=== PATIENT | female | born 2000 | race Asian ===

== ENCOUNTER 2019-06-16 06:07 | Day surgery (SDC) | payer BC ==
[~2019-06-16] VITALS: Ht 160 cm; Wt 64.9 kg
[2019-06-16] MEDS ORDERED: DEXAMETHASONE SOD PHOSPHATE 4 MG/ML VIAL IVP ONE (07:45)
[2019-06-16] MEDS ORDERED: WATER FOR IRRIGATION,STERILE 1,000 ML IRRIG.SOLN IR ONE (07:45)
[2019-06-16] MEDS ORDERED: BACITRACIN ZINC 15 GM TOPICAL OINTMENT TP ONE (07:45)
[2019-06-16] MEDS ORDERED: LR 1,000 ML IV.SOLN IV ONE (07:45)
[2019-06-16] MEDS ORDERED: ROCURONIUM BROMIDE 10 MG/ML (ZEMURON) IV ONE (07:45)
[2019-06-16] MEDS ORDERED: SEVOFLURANE 15 MIN GAS INH ONE (07:45)
[2019-06-16] MEDS ORDERED: MIDAZOLAM HCL 5 MG/5 ML VIAL IVP ONE (07:45)
[2019-06-16] MEDS ORDERED: fentaNYL CITRATE 250 MCG/5 ML AMP IV ONE (07:45)
[2019-06-16] MEDS ORDERED: KETOROLAC TROMETHAMINE 30 MG VIAL IVP ONE (07:45)
[2019-06-16] MEDS ORDERED: BUPIVACAINE /EPINEPHRINE/PF 0.25% 30 ML VIAL INJ ONE (07:45)
[2019-06-16] MEDS ORDERED: NS IRRIG SOLN 1000 ML IR ONE (07:45)
[2019-06-16] MEDS ORDERED: PROPOFOL 200MG/ 20ML VIAL (DIPRIVAN) IV ONE (07:45)
[2019-06-16] MEDS ORDERED: ONDANSETRON HCL 4 MG/2 ML VIAL IVP ONE (07:45)
[2019-06-16] MEDS ORDERED: LR 1,000 ML IV SCH (08:34)
[2019-06-16] MEDS ORDERED: HYDROmorphone 2 MG/ML VIAL IVP PRN ×2 (08:45)
[2019-06-16] MEDS ORDERED: MEPERIDINE HCL/PF 25 MG/ML DISP.SYRIN IVP PRN (08:45)
[2019-06-16] MEDS ORDERED: HYDROmorphone 1 MG INJ. 1 MG/ML AMPUL IVP PRN (08:45)
[2019-06-16] MEDS ORDERED: ONDANSETRON HCL 4 MG/2 ML VIAL IVP PRN (09:15)
[2019-06-16] MEDS ORDERED: ONDANSETRON 4 MG ODT TAB PO PRN (09:15)
[2019-06-16] MEDS ORDERED: HYDROcodone/ACETAMIN 5-325 MG TAB (NORCO/ VICODIN) PO PRN (09:15)
[2019-06-16] MEDS ORDERED: HYDROmorphone 2 MG/ML VIAL ONE (09:33)
[2019-06-16 10:24] VITALS: BP_SYST 101
[2019-06-16] MEDS: DIPHENHYDRAMINE INJ 50 MG/ML VIAL ONE ×2 (11:09→11:10)
[2019-06-16] MEDS ORDERED: DIPHENHYDRAMINE INJ 50 MG/ML VIAL IVP ONE (11:15)
[2019-06-16] MEDS ORDERED: DIPHENHYDRAMINE INJ 50 MG/ML VIAL IM ONE (11:15)
[2019-06-16] MEDS ORDERED: HYDROCORTISONE SOD SUCC 100 MG/2 ML VIAL IVP ONE (12:15)
== END 2019-06-16 12:47 | disposition home or self-care (01) ==
LOC: SDS 06:07 → SMU 06:08 → SDS 12:47
PROVIDERS: ATTEND Otolaryngology
DX: J35.01 Chronic tonsillitis (principal)
CPT/HCPCS: 42821; 88304; J1170; J1200; J1720; J7120; J1100; J1885; J2250; J2405; J2704; J3010; J3490

== ENCOUNTER 2019-06-21 12:16 | Inpatient (IN) | payer BC ==
[~2019-06-21] VITALS: Ht 160 cm; Wt 63.5 kg
[2019-06-21 12:22] VITALS: BP_SYST 124
[2019-06-21] MEDS ORDERED: NACL 0.9% 1,000 ML IV ONE ×2 (13:56→14:15)
--- NOTE | 2019-06-21 13:56 | NUR ---
Placed in bed 7 to gown for exam. Mother at bedside.
--- NOTE | 2019-06-21 14:00 | NUR ---
Pt brought by mother, A&Ox4, pt c/o difficulty swallowing and bleeding s/p tonsillectomy on Saturday ,pt was unable to contact surgeon, no bleeding at this time, VSS, respirations even and unlabored, cap refill <3.
[2019-06-21] MEDS ORDERED: ONDANSETRON HCL 4 MG/2 ML VIAL IVP ONE (14:15)
[2019-06-21] MEDS ORDERED: MORPHINE 4 MG/ML INJ. SYRINGE IVP ONE ×2 (14:15→16:30)
--- NOTE | 2019-06-21 14:20 | NUR ---
Dr Toribio at bedside examining patient
[2019-06-21 14:41] LABS: BASOPHILS % (AUTO) 0.2 % (0.0-2.0); EOSINOPHILS # (AUTO) 0.1 K/uL (0.0-0.4); EOSINOPHILS % (AUTO) 0.7 % (0.0-4.0); HEMATOCRIT 42.8 % (36-48); HEMOGLOBIN 14.7 g/dL (12.0-16.0); LYMPHOCYTES % (AUTO) 10.8 % (20.5-51.5); MEAN CORPUSCULAR HEMOGLOBIN 30 pg (27-31); MEAN CORPUSCULAR HGB CONC 34 % (32-36); MEAN CORPUSCULAR VOLUME 87 fL (79.0-98.0); MONOCYTES # (AUTO) 0.8 K/uL (0.0-1.0); MONOCYTES % (AUTO) 8.4 % (1.7-9.3); NEUTROPHILS # (AUTO) 7.4 K/uL (1.8-7.7); NEUTROPHILS % (AUTO) 79.9 % (40.0-70.0); PLATELET COUNT (AUTO) 206 K/uL (130-430); RED BLOOD CELL COUNT(AUTO) 4.95 MIL/uL (4.2-6.2); RED CELL DISTRIBUTION WIDTH 12.3 % (9.0-15.0); WHITE BLOOD COUNT (AUTO) 9.2 K/uL (4.5-11.0)
[2019-06-21 14:50] LABS: PROTHROMBIN TIME 10.7 SECS (9.5-12.5)
[2019-06-21 15:15] LABS: CALCIUM 9.7 mg/dL (8.4-11.0); CREATININE 0.59 mg/dL (0.55-1.30); POTASSIUM 4.1 mmol/L (3.5-5.1)
[2019-06-21 15:19] LABS: ALBUMIN 3.8 g/dL (3.4-4.8); TOTAL BILIRUBIN 0.6 mg/dL (0.0-1.0)
--- NOTE | 2019-06-21 16:12 | NUR ---
Pt resting at this time, VSS, respirations even and unlabored, pt states pain improved after pain medication administration.
[2019-06-21 16:21] LABS: BILIRUBIN,URINE 1+ (NEGATIVE); BLOOD, URINE 2+ (NEGATIVE); CLARITY/URINE CLEAR (CLEAR); COLOR,URINE YELLOW (YELLOW); GLUCOSE,URINE NEGATIVE (NEGATIVE); KETONES,URINE 3+ (NEGATIVE); LEUKOCYTE ESTERASE ,URINE NEGATIVE (NEGATIVE); NITRITE, URINE NEGATIVE (NEGATIVE); PROTEIN URINE NEGATIVE (NEGATIVE); UROBILINOGEN,URINE 0.2 (0.2-1.0)
[2019-06-21] MEDS ORDERED: DEXAMETHASONE SOD PHOSPHATE 10 MG/ML VIAL IVP ONE (16:45)
[2019-06-21 16:50] LABS: BACTERIA,URINE MODERATE /HPF (None Seen); WBC,URINE 0-3 /HPF (0-3)
[2019-06-21 16:53] LABS: MUCUS,URINE None Seen /LPF (None Seen)
[2019-06-21] MEDS ORDERED: MORPHINE 2 MG/ML INJ. SYRINGE IVP PRN (17:00)
--- NOTE | 2019-06-21 17:10 | NUR ---
CONSULTATION PAGED/CALLED Reason for Consultation: POST TONSILLECTOMY BLEEDING Person Who was Notified: KRANTHI Consulting Physician: DR. FLYNN Advertising Associate Specialty: ENT SURGEON Ordering Physician: DR. SMITH
[2019-06-21] MEDS ORDERED: ZOLPIDEM TARTRATE 5 MG TABLET PO PRN (17:15)
[2019-06-21] MEDS ORDERED: MUPIROCIN 2% TOPICAL OINTMENT 22 GM NS PRN (17:15)
[2019-06-21] MEDS ORDERED: LORazepam 2 MG/ML VIAL IVP PRN (17:15)
[2019-06-21] MEDS ORDERED: MAGNESIUM SULFATE 50 ML IV PRN (17:15)
[2019-06-21] MEDS ORDERED: DOCUSATE SODIUM 100 MG CAPSULE PO PRN (17:15)
[2019-06-21] MEDS ORDERED: POTASSIUM CHLORIDE 20 MEQ TAB.PRT.SR PO PRN (17:15)
[2019-06-21] MEDS ORDERED: ACETAMINOPHEN 325 MG TABLET PO PRN (17:15)
[2019-06-21] MEDS ORDERED: ONDANSETRON HCL 4 MG/2 ML VIAL IVP PRN (17:15)
--- NOTE | 2019-06-21 17:20 | NUR ---
Spoke to DR. Logan informed regarding patient admission to hospital , transfer the call to ER doctor.
--- NOTE | 2019-06-21 17:30 | NUR ---
Patient will be admitted to care of Dr Hollis Admitted to Medsurg unit. Will go to room 101A. Belongings list completed. Summary report printed. Report will be given at bedside.
--- NOTE | 2019-06-21 17:30 | NUR ---
ADMISSION NOTE Received patient from ER via efde, received report from ILLO MAJANO. Patient admitted with diagnosis of POST TONSILLECTOMY. Patient oriented to hospital routine, call light, toileting and safety-patient verbalized understanding.
[2019-06-21 17:44] VITALS: BP_SYST 118
[2019-06-21] MEDS ORDERED: HYDR-4272 PO (17:53)
[2019-06-21] MEDS: D5NS 1,000 ML IV SCH (18:12)
--- NOTE | 2019-06-21 19:00 | NUR ---
Note 1745 - Received report from Sangita - admit RN for continuation of care. Pt's mother and pt answered admission assessment questions at this time. Oriented pt and her mother to nursing routines and procedures. Pt sitting up in bed with 2 friends and father at bedside at this time. Pt stable. Denies any SOB/resp distress or severe pain/discomfort at this time when swallowing. IV in right hand intact and patent infusing IVF's well at this time. No needs noted at this time. Pt was checked on q1' and PRN for needs and care. Call light within reach.
--- NOTE | 2019-06-21 19:15 | NUR ---
OPENING NOTES Received pt and endorsement from day shift nurse. Pt is AAOx4, lying in bed. Family at bedside. Pt on IVF with D5NS at 80ml/hr and infusing well on right hand G22. No complains of pain at this time. No signs of acute distress or SOB noted. Encouraged to use call light when needed. Pt refused bed alarm and was educated safety and risks and benefits of alarm, pt verbalized understanding. Safety precautions in place with 2 side rails up, wheels locked, bed in lowest level. Call light with pt. Will continue to monitor.
[2019-06-21 20:09] VITALS: BP_SYST 133
--- NOTE | 2019-06-21 21:00 | NUR ---
ROUNDS Pt is AAOx4, lying in bed. Family and visitors at bedside. No complains of pain and no signs of acute distress noted. IVF infusing well. Safety precautions in place and call light with pt. Will continue to monitor.
[2019-06-22 00:07] VITALS: BP_SYST 124
[2019-06-22] MEDS: MORPHINE 2 MG/ML INJ. SYRINGE IVP PRN ×3 (00:15→12:31)
--- NOTE | 2019-06-22 00:15 | NUR ---
PAIN MED Pt complained of pain on her throat with a scale of 7/10. Morphine 2mg IVP given as ordered. Educated pt on side effects like dizziness and educated on safety precautions, pt verbalized understanding. Will continue to monitor.
--- NOTE | 2019-06-22 03:12 | NUR ---
ROUNDS Pt is resting in bed with both eyes closed, with visible chest rise and fall with unlabored breathing noted. Pt is easily arousable. IVF infusing well. No complains of pain and no signs of acute distress noted. Safety precautions in place and call light with pt. Will continue to monitor.
[2019-06-22] MEDS: D5NS 1,000 ML IV SCH ×2 (05:22→17:52)
--- NOTE | 2019-06-22 06:41 | NUR ---
CLOSING NOTES Pt is resting in bed with both eyes closed, with visible chest rise and fall with unlabored breathing noted. IVF infusing well. No complains of pain at this time. No signs of acute distress or SOB noted. All needs attended throughout the shift. Safety precautions in place with 2 side rails up, wheels locked, bed in lowest level. Call light with pt. Will endorse to day shift nurse.
[2019-06-22 08:00] VITALS: BP_SYST 122
--- NOTE | 2019-06-22 08:00 | NUR ---
Note Pt resting in bed with mother at bedside at this time. IV in right hand intact and patent infusing IVF's well. No SOB/resp distress or bleeding from throat noted at this time. Pt is NPO at this time. No needs noted. Pain medication IVP was given as requested at this time. Call light within reach.
[2019-06-22 08:47] LABS: HEMOGLOBIN 11.7 g/dL (12.0-16.0); MEAN CORPUSCULAR HEMOGLOBIN 30 pg (27-31); MEAN CORPUSCULAR HGB CONC 35 % (32-36); MEAN CORPUSCULAR VOLUME 86 fL (79.0-98.0); PLATELET COUNT (AUTO) 213 K/uL (130-430); RED BLOOD CELL COUNT(AUTO) 3.94 MIL/uL (4.2-6.2); RED CELL DISTRIBUTION WIDTH 11.9 % (9.0-15.0)
[2019-06-22 08:50] LABS: WHITE BLOOD COUNT (AUTO) 12.9 K/uL (4.5-11.0)
--- NOTE | 2019-06-22 10:45 | NUR ---
Note Dr Hollis on the floor and bedside, assessment done, orders written and carried out.
[2019-06-22] MEDS ORDERED: cefTRIAXone 1 GM in D5W 50 ML IV SCH (11:00)
[2019-06-22] MEDS ORDERED: MORPHINE 2 MG/ML INJ. SYRINGE IVP PRN (11:00)
[2019-06-22] MEDS ORDERED: methylPREDNISolone SOD SUCC 40 MG/ML VIAL IVP ONE (11:00)
[2019-06-22 12:01] LABS: BAND % (MANUAL) 4 % (0-6)
[2019-06-22 12:02] LABS: ATYPICAL LYMPHOCYTES % 0 % (0-0); BASOPHILS % (MANUAL) 0 % (0-2); EOSINOPHILS % (MANUAL) 0 % (0-7); LYMPHOCYTES % (MANUAL) 15 % (20-46); MONOCYTES % (MANUAL) 10 % (0-11)
--- NOTE | 2019-06-22 15:30 | NUR ---
Note Dr Mccurdy called and order for Full liquids diet given and carried out at this time. Pt ambulating with mother by her side to restroom all shift. No needs noted at this time. Call light within reach.
[2019-06-22 16:00] VITALS: BP_SYST 136
--- NOTE | 2019-06-22 18:00 | NUR ---
Note Pt sitting up in bed drinking her full liquids diet. Pt's sister at bedside. No SOB/resp distress or severe throat pain/discomfort noted at this time. Pt was checked on q1' and PRN all shift for needs and care. Call light within reach.
--- NOTE | 2019-06-22 19:10 | NUR ---
OPENING NOTES Received pt and endorsement from day shift nurse. Pt is AAOx4, lying in bed. Pt on IVF with D5NS at 80ml/hr and infusing well on right hand G22. No complains of pain at this time. No signs of acute distress or SOB noted. Encouraged to use call light when needed. Pt refused bed alarm and was educated on safety and benefits of alarm, pt verbalized understanding. Safety precautions in place with 2 side rails up, wheels locked, bed in lowest level. Call light with pt. Will continue to monitor.
[2019-06-22 20:49] VITALS: BP_SYST 121
[2019-06-22] MEDS: methylPREDNISolone SOD SUCC 40 MG/ML VIAL IVP SCH (20:51)
--- NOTE | 2019-06-22 20:51 | NUR ---
MED PASS Due med given. No complains of pain and no bleeding from throat. No signs of acute distress noted. Ice chips given per pt's request. Will continue to monitor.
--- NOTE | 2019-06-22 23:45 | NUR ---
ROUNDS Pt is AAOx4, lying in bed. Mother at bedside. IVF infusing well. No complains of pain and no signs of acute distress noted. No needs at this time. Safety precautions in place and call light with pt. Will continue to monitor.
[2019-06-23 00:11] VITALS: BP_SYST 108
--- NOTE | 2019-06-23 02:16 | NUR ---
ROUNDS Pt is resting in bed with both eyes closed, with visible chest rise and fall with unlabored breathing noted. Mother at bedside. IVF infusing well. No signs of acute distress noted. Safety precautions in place and call light with pt. Will continue to monitor.
[2019-06-23] MEDS: MORPHINE 2 MG/ML INJ. SYRINGE IVP PRN (03:14)
--- NOTE | 2019-06-23 03:14 | NUR ---
PAIN MED Pt complained of throat pain with a scale of 6/10. Morphine 1mg IVP given as ordered. Educated pt on side effects like dizziness and educated on safety precautions, pt verbalized understanding. No signs of acute distress noted. Will continue to monitor.
[2019-06-23] MEDS: D5NS 1,000 ML IV SCH (05:55)
[2019-06-23 07:18] LABS: BASOPHILS % (AUTO) 0.3 % (0.0-2.0); HEMATOCRIT 35.7 % (36-48); HEMOGLOBIN 12.3 g/dL (12.0-16.0); LYMPHOCYTES # (AUTO) 1.4 K/uL (1.0-5.5); LYMPHOCYTES % (AUTO) 20.2 % (20.5-51.5); MEAN CORPUSCULAR HEMOGLOBIN 30 pg (27-31); MEAN CORPUSCULAR HGB CONC 34 % (32-36); MEAN CORPUSCULAR VOLUME 86 fL (79.0-98.0); MONOCYTES # (AUTO) 0.8 K/uL (0.0-1.0); MONOCYTES % (AUTO) 10.6 % (1.7-9.3); NEUTROPHILS # (AUTO) 4.9 K/uL (1.8-7.7); NEUTROPHILS % (AUTO) 68.9 % (40.0-70.0); PLATELET COUNT (AUTO) 207 K/uL (130-430); RED BLOOD CELL COUNT(AUTO) 4.14 MIL/uL (4.2-6.2); RED CELL DISTRIBUTION WIDTH 12.5 % (9.0-15.0); WHITE BLOOD COUNT (AUTO) 7.1 K/uL (4.5-11.0)
--- NOTE | 2019-06-23 07:30 | NUR ---
Opening note Patient resting in bed A/Ox4, no complaints of pain. No SOB. Iv patent, intact, and infusing as ordered. No adverse side effects noted. No coughing. On safety and aspiration precautions, bed alarm on, bed in lowest position, 3 side rails up, call light within reach. Will continue to monitor.
[2019-06-23 08:10] VITALS: BP_SYST 114
[2019-06-23] MEDS: methylPREDNISolone SOD SUCC 40 MG/ML VIAL IVP SCH (08:17)
--- NOTE | 2019-06-23 09:00 | NUR ---
Medications All morning medications given as ordered. No adverse side effects, no coughing. No bleeding noted.
[2019-06-23] MEDS ORDERED: PRED10TA PO (11:49)
[2019-06-23] MEDS ORDERED: LEVO750T45 PO (11:50)
--- NOTE | 2019-06-23 12:10 | NUR ---
D/C Patient Patient given medication reconciliation form and D/C instructions. Exit Care provided. Patient verbalized understanding. MD discussed with patient the results and treatment provided. Ambulatory with steady gait for discharge to home. Patient in stable condition, ID band removed. IV catheter removed, intact and dressing applied, no active bleeding. Rx of prednisone, and antibiotic given. Patient educated on pain management. All belongings sent with patient.
[2019-06-23 13:55] VITALS: BP_SYST 114
== END 2019-06-23 12:10 | disposition home or self-care (01) | DRG 920 ==
LOC: SED 12:16 → SMU 16:47
PROVIDERS: ADMIT General Practice; ATTEND General Practice
DX: L76.22 Postprocedural hemorrhage of skin and subcutaneous tissue following other procedure (principal); N39.0 Urinary tract infection, site not specified; J04.0 Acute laryngitis; Z60.2 Problems related to living alone; E86.0 Dehydration; R13.10 Dysphagia, unspecified; Y83.8 Other surgical procedures as the cause of abnormal reaction of the patient, or of later complication, without mention of misadventure at the time of the procedure; R04.1 Hemorrhage from throat; Y82.8 Other medical devices associated with adverse incidents; Y92.89 Other specified places as the place of occurrence of the external cause; Z79.899 Other long term (current) drug therapy
CPT/HCPCS: 36415; 71045; 80053; 81000-TC; 83605; 83690-TC; 85007; 85025; 85027; 85610-TC; 85730-TC; 87040-TC; 87086; 96374; 96375; 96376; 99285; J0696; J1030; J1100; J2270; J2405; J7042; J7060